=== PATIENT | female | born 1985 | race Caucasian/White ===

== ENCOUNTER 2019-01-26 19:13 | Emergency (ER) | payer MEDICAID, SELFPAY ==
[2019-01-26 19:21] VITALS: BP 144/82; PULSE 122; RESP 16; TEMP 37.5; O2SAT 100
[2019-01-26] MEDS: Ibuprofen 600 MG TAB PO (19:39)
--- NOTE | 2019-01-26 19:41 | ED.GENADUL_ITS ---
Discharge Plan Disposition Patient Disposition: HOME Condition: Stable Discharge Details Chief Complaint: Orthopedic Clinical Impression: Right ankle sprain Primary Care Provider: Carissa Macias ED Provider: José Miguel Padilla Home Meds and New Rx's Prescriptions: No Action Lyrica 25 MG capsule 50 mg PO BID RF: 0 sertraline [Zoloft] 100 mg Tablet 100 mg PO DAILY RF: 0 amitriptyline 10 mg Tablet 30 mg PO DAILY RF: 0 NuvaRing 0.12-0.015 mg/24 hr Ring 1 vag ring Vaginal DIRECTED RF: 0 Discharge Instructions Instructions: Ankle Sprain (ED) Additional Instructions: if still in pain in a week follow up with your primary care provider Medical Decision Making 33 yo female states she was carrying things down the stairs when she tripped and twisted her right ankle. Denies hitting head or loc, no headache or neck sandra now, meets all criteria per [place] head ct rules and nexus to not image head or c spine. No chest pain or abd pain or tenderness. Has pain in the right lateral ankle, no visible or palpable deformity, intact sensation, no pain over metatarsals. 2+ dp/pt pulses. will obtain xray to eval for fx. xray negative, will place in lace up support device and crutches prn, advised f/u with pcp if not better in a week Differential Diagnosis sprain, strain, fx Imaging Data Radiologic Study: Attestation: I personally reviewed and interpreted this imaging study as follows: Imaging: X-Ray Radiologist's impression: IMPRESSION: 1. No acute osseous injuries are identified. 2. Lateral soft tissue swelling. HPI General Date/Time Provider Initiated Documentation: 01/26/19 19:28 . Limitations to Documentation: no limitations . Information obtained by: patient . History of Present Illness 33 year old F presents to the emergency department with the chief complaint of right ankle pain, described as moderate, Quality is described as aching, and is localized to the right and lower extremity. Patient reports no radiation. Patient started experiencing this hour(s) (1) and it has been constant. Rest improves symptom(s), Movement worsens symptoms . Patient notes no other symptoms.. Patient did receive the following treatments prior to arrival, none Related Data Home Medications Medication Instructions Recorded Confirmed pregabalin [Lyrica] 50 mg PO BID 07/27/16 01/26/19 amitriptyline 30 mg PO DAILY 01/26/19 01/26/19 etonogestrel-ethinyl estradiol 1 vag ring VAGINAL DIRECTED 01/26/19 01/26/19 [NuvaRing] sertraline [Zoloft] 100 mg PO DAILY 01/26/19 01/26/19 Allergies Allergy/AdvReac Type Severity Reaction Status Date / Time No Known Allergies Allergy Unverified 01/26/19 19:28 General Stated Complaint: Orthopedic NHAN: 4 Review of Systems Review of Systems All systems reviewed & are unremarkable except as noted in HPI and below Constitutional Denies chills and Denies fever(s) Cardiovascular Denies chest pain and Denies dyspnea Respiratory Denies cough and Denies dyspnea Gastrointestinal Denies abdominal pain, Denies nausea and Denies vomiting PFSH Medical History Anxiety Back pain Breast mass, right Coccydynia Depression Surgical History coccygectomy (01/17/13) Family History Mother No problems noted. Father Essential hypertension Grandfather Diabetes Grandmother Diabetes Social History Smoking/Tobacco Use Status: Never Alcohol Intake: never Drug use: Never Do you feel safe at home: Yes Do you feel safe in your relationship?: Yes Exam Const General: no acute distress Orientation: alert HENMT Head: normal to inspection Ears: external ears normal General nose exam: external nose normal Mouth: moist mucous membranes Eyes General: appearance normal, both eyes and all related structures Neck Neck: normal visual inspection Resp Effort & Inspection: normal respiratory effort and able to speak in complete sentences Cardio Rate: regular rate Skin General skin exam: no rashes or lesions noted Neuro General: alert and oriented x3 Extrem General: normal capillary refill Psych Mental Status: mental status grossly normal Course Vital Signs Temperature 37.5 C 01/26/19 19:21 Pulse 122 H 01/26/19 19:21 Respiratory Rate 16 01/26/19 19:21 Blood Pressure 144/82 H 01/26/19 19:21 Pulse Oximetry 100 01/26/19 19:21 Temperature 37.5 C 01/26/19 19:21 Temperature Source Skin 01/26/19 19:21 Pulse 122 H 01/26/19 19:21 Respiratory Rate 16 01/26/19 19:21 Respiratory Effort 01/26/19 19:31 Blood Pressure 144/82 H 01/26/19 19:21 Blood Pressure Position Supine 01/26/19 19:21 Pulse Oximetry 100 01/26/19 19:21 Oxygen Delivery Method Room Air 01/26/19 19:21 Oxygen Flow Rate 0 01/26/19 19:21 Pain Level 7 01/26/19 19:21 Comment 01/26/19 19:21
--- NOTE | 2019-01-26 20:17 | DI.RAD_ITS ---
SYMPTOM/DIAGNOSIS: PAIN, S/P FALL RIGHT ANKLE: No fracture or ankle mortise widening is seen. The talar dome appears intact. IMPRESSION: Negative right ankle.
--- NOTE | 2019-01-26 20:48 | DI.VRAD_ITS ---
EXAM: XR Right Ankle EXAM DATE/TIME: 01/26/2019 7:36 PM CLINICAL HISTORY: 33 years old, female; Ankle; Right; Patient HX: Pain S/P fall down 3 steps TECHNIQUE: Imaging protocol: XR Right ankle. Views: 3 or more views. COMPARISON: No relevant prior studies available. FINDINGS: Bones/joints: No fractures. No blastic or lytic lesions. No periostitis or osteolysis. The ankle mortise joint is well maintained. No hindfoot coalition. Soft tissues: Mild lateral soft tissue swelling. No radiopaque foreign bodies. Other findings: The visualized hindfoot and midfoot are grossly well aligned. IMPRESSION: 1. No acute osseous injuries are identified. 2. Lateral soft tissue swelling. Dictated and Authenticated by: Poncho Drummond MD. Ordering:LITO Valdez MD
== END 2019-01-26 21:10 | disposition home or self-care (01) ==
PROVIDERS: Emergency Provider Emergency Medicine; PCP Nurse Practitioner Family
DX: S93.401A Sprain of unspecified ligament of right ankle, initial encounter (principal); W10.8XXA Fall (on) (from) other stairs and steps, initial encounter
CPT/HCPCS: 29515; 99283; 73610; 99282; E0114; L1902

== ENCOUNTER 2019-02-09 16:02 | Outpatient (REF) | payer MEDICAID, SELFPAY ==
[2019-02-09 20:49] LABS: Abs Immature Grans 0.03 k/cumm (0.0-0.09); Absolute Basophil Count 0.02 k/cumm (0.0-0.2); Absolute Eosinophil Count 0.06 k/cumm (0.0-0.7); Absolute Lymphocyte Count 2.12 k/cumm (1.2-3.4); Absolute Neutrophil Count 5.05 k/cumm (1.2-6.7); Basophils % 0.3; Eosinophils % 0.8; HCT 42.5 % (36.0-46.0); HGB 14.3 g/dL (12.0-15.5); Immature Grans % 0.4; Lymphocytes % 26.6; Mean Corp. HGB Concentration 33.6 g/dL (32.0-36.0); Mean Corpuscular Hemoglobin 30.7 pg (27.0-33.0); Mean Corpuscular Volume 91.2 fL (80-95); Mean Platelet Volume 9.9 fL (8.0-11.0); Monocytes % 8.8; Neutrophils % 63.1; Platelet Count 424 x1000/uL (130-400); RBC 4.66 m/cumm (4.00-5.20); RBC Distribution Width 13.5 % (11.7-14.6); White Blood Cell Count 7.98 k/cumm (4.4-10.8)
[2019-02-09 20:54] LABS: Iron 79 ug/dL (50-175); Total Iron Binding Capacity 405 ug/dL (250-450); Transferrin Sat 20 % (15-50)
[2019-02-09 21:11] LABS: Ferritin 110 ng/mL (8-388); TSH (W/Ref FT4) 3.78 uIU/mL (0.358-3.74)
== END 2019-02-09 16:22 ==
LOC: NCHCN 16:02
PROVIDERS: PCP Nurse Practitioner Family; Visit Provider Nurse Practitioner Family
DX: E03.9 Hypothyroidism, unspecified (principal); R53.83 Other fatigue; F41.8 Other specified anxiety disorders; Z87.820 Personal history of traumatic brain injury; E66.9 Obesity, unspecified
CPT/HCPCS: 82728; 83540; 83550; 84439; 84443; 85025

== ENCOUNTER 2019-08-07 15:38 | Outpatient (REF) | payer MEDICAID, SELFPAY | END 2019-08-07 15:58 | LOC: NCHCN 15:38 | PROVIDERS: PCP Nurse Practitioner Family; Visit Provider Nurse Practitioner Family | DX: R53.83 Other fatigue (principal); F41.8 Other specified anxiety disorders; E03.9 Hypothyroidism, unspecified | CPT/HCPCS: 84443 ==

== ENCOUNTER 2020-10-08 13:34 | Outpatient (REF) | payer MEDICAID, SELFPAY ==
--- NOTE | 2020-10-08 11:15 | PAPFT_PTH ---
PATIENT: Lu Gomez LOC: [facility] U#:[id number] AGE/SX: 35/F ROOM: RE10/08/[address]: Candis Farias : 1985 BED: DIS: 10/08/2020 SPEC #: [id number] RECD: 10/09/20 12:52 STATUS: JAREN REQ #: [id number] SHADIA: 10/08/20 11:[address]: Candis Farias DEPT: [facility] Cytology RECD BY: Nereida De La Torre ENTERED: 10/09/20 12:53 SP TYPE: PAPFT OTHR DR: Cairssa Macias Tissues: 1 - CX/ENDOCX FOR PAP SMEARS Procedures: PAP THIN PREP/[facility] Screening HPV DNA PROBE Comments: [id number] (CHLAMYDIA/GC)
[2020-10-08 22:03] LABS: HCT 41.6 % (36.0-46.0); HGB 13.9 g/dL (11.2-15.7); MCH 30.6 pg (27.0-33.0); MCHC 33.4 % (32.0-36.0); MCV 91.6 fL (80-95); MPV 9.5 fL (8.0-11.0); Platelet Count 415 10^3/uL (130-400); RBC 4.54 10^6/uL (3.93-5.22); RDW 11.9 % (11.7-14.6); RDW-SD 40.1 fL; WBC 7.17 10^3/uL (4.4-10.8)
[2020-10-08 22:25] LABS: Anion Gap 11.5 mmol/L (3-11); BUN 9 mg/dL (7-18); CO2 23.5 mmol/L (21.0-32.0); CREATININE 0.7 mg/dL (0.55-1.02); Chloride 103 mmol/L (98-107); Glucose 86 mg/dL (74-106); Potassium 4.1 mmol/L (3.5-5.1); Sodium 138 mmol/L (136-145); TSH (W/Ref FT4) 3.03 uIU/mL (0.36-3.74)
[2020-10-10 15:17] LABS: Chlamydia Result Negative (Negative); GC Result Negative (Negative)
== END 2020-10-08 13:35 | disposition home or self-care (01) ==
LOC: NCHCN 13:34
PROVIDERS: PCP Nurse Practitioner Family; Visit Provider Nurse Practitioner Family
DX: E03.9 Hypothyroidism, unspecified (principal); E66.9 Obesity, unspecified; R53.83 Other fatigue; N89.8 Other specified noninflammatory disorders of vagina; Z12.4 Encounter for screening for malignant neoplasm of cervix; Z01.419 Encounter for gynecological examination (general) (routine) without abnormal findings; Z11.51 Encounter for screening for human papillomavirus (HPV)
CPT/HCPCS: 80048; 85027; 87491; 87591; 88142; 84443; 87480; 87510; 87624; 87660

== ENCOUNTER 2020-11-27 02:26 | Outpatient (CLI) | payer MEDICAID, SELFPAY ==
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
== END 2020-11-27 02:27 | disposition home or self-care (01) ==
PROVIDERS: PCP Nurse Practitioner Family; Visit Provider Dietitian, Registered
DX: E66.9 Obesity, unspecified (principal); Z68.33 Body mass index [BMI] 33.0-33.9, adult; Z71.3 Dietary counseling and surveillance
CPT/HCPCS: 97802

== ENCOUNTER 2021-04-14 15:43 | Outpatient (REF) | payer MEDICAID, SELFPAY ==
[2021-04-14 21:54] LABS: C-Reactive Protein 0.69 mg/dL (0.0-0.3)
[2021-04-14 22:02] LABS: ESR 12 mm/hr (0-20)
[2021-04-15 16:30] LABS: Rheumatoid Factor <8.6 IU/mL (<12.0)
[2021-04-16 01:00] LABS: Vitamin D 25 Total 11.9 ng/mL (30-100)
[2021-04-16 13:40] LABS: ANA Interpretation Negative (Negative)
== END 2021-04-14 15:44 | disposition home or self-care (01) ==
LOC: NCHCN 15:43
PROVIDERS: PCP Nurse Practitioner Family; Visit Provider Nurse Practitioner Family
DX: M79.10 Myalgia, unspecified site (principal); R53.83 Other fatigue
CPT/HCPCS: 82306; 85652; 86038; 86140; 86431

== ENCOUNTER 2022-11-11 17:30 | Outpatient (REF) | payer MEDICAID, SELFPAY ==
[2022-11-11 21:49] LABS: Hemoglobin A1C 5.6 % (<5.7)
[2022-11-11 22:01] LABS: ALT 29 U/L (14-59); AST 22 U/L (15-37); Albumin 3.3 g/dL (3.4-5.0); Alkaline Phosphatase 73 U/L (46-116); Anion Gap 8.7 mmol/L (3-11); BUN 11 mg/dL (7-18); Bilirubin, Total 0.2 mg/dL (0.2-1.0); CO2 24.3 mmol/L (21.0-32.0); CREATININE 0.7 mg/dL (0.55-1.02); Calcium 8.7 mg/dL (8.5-10.1); Chloride 106 mmol/L (98-107); Estimated GFR 115.59 (mL/min/1.73m2); Glucose 111 mg/dL (74-106); Potassium 4.1 mmol/L (3.5-5.1); Sodium 139 mmol/L (136-145)
[2022-11-11 22:13] LABS: Vitamin D 25 Total 10.6 ng/mL (30-100)
== END 2022-11-11 17:31 | disposition home or self-care (01) ==
LOC: NCHCN 17:30
PROVIDERS: PCP Nurse Practitioner Family; Visit Provider Nurse Practitioner Family
DX: R53.83 Other fatigue (principal); E66.8 Other obesity; R73.09 Other abnormal glucose; E55.9 Vitamin D deficiency, unspecified
CPT/HCPCS: 80053; 82306; 83036